=== PATIENT | male | born 1965 | race Caucasian/White ===

== ENCOUNTER → 2020-10-18 10:01 | Outpatient (CLI) | payer BC, SELFPAY | PROVIDERS: PCP Family Medicine; Visit Provider Family Medicine | DX: I49.3 Ventricular premature depolarization (principal) | CPT/HCPCS: 93225; 93226 ==

== ENCOUNTER 2023-12-24 08:09 | Outpatient (CLI) | payer BC, SELFPAY ==
--- NOTE | 2023-12-24 08:13 | US_ITS ---
FINAL REPORT TECHNIQUE: Ultrasound images of the abdomen were obtained. CLINICAL HISTORY: WEIGHT LOSS,ABN PAIN, BLOATING FINDINGS: The pancreas is obscured by bowel gas. The liver is unremarkable. The gallbladder is filled with sludge. There is no gallbladder wall thickening. The common duct is not well seen. The right kidney measures 10.0 cm in length and is normal in echogenicity without hydronephrosis. The left kidney measures 13.0 cm in length and is normal in echogenicity without hydronephrosis. There are echogenic foci in both kidneys measuring up to 7 mm on the right consistent with nonobstructing stones. The spleen is unremarkable. The aorta is normal in caliber. The vena cava is unremarkable. IMPRESSION: Nonobstructing renal stones. Reviewed, Interpreted and Dictated by Brad Neal MD Transcribed by Hermelinda Hughes Authenticated and . [facility]
== END 2023-12-24 23:59 | disposition home or self-care (01) ==
PROVIDERS: PCP Family Medicine; Visit Provider Nurse Practitioner
DX: R63.4 Abnormal weight loss (principal); R10.9 Unspecified abdominal pain; R14.0 Abdominal distension (gaseous)
CPT/HCPCS: 76700

== ENCOUNTER 2024-01-16 10:07 | Outpatient (CLI) | payer BC, SELFPAY ==
--- NOTE | 2024-01-16 10:12 | NM_ITS ---
FINAL REPORT CLINICAL HISTORY: Right upper quadrant pain FINDINGS: Sequential anterior projection images of the abdomen were obtained after the intravenous injection of 5.3 mCi technetium 99m Choletec. There is normal uptake of radiotracer by the liver. There is proper filling of the bile ducts and gallbladder. Bowel activity is visualized. After 1 hour, 2.1 ?g of CCK was injected intravenously for calculation of gallbladder ejection fraction. The gallbladder ejection fraction is 36%, which is abnormally depressed. IMPRESSION: No evidence of cystic duct or bile duct obstruction. Abnormally depressed gallbladder ejection fraction of 36%. Reviewed, Interpreted and Dictated by Brad Neal MD Transcribed by Julieta Truong Authenticated and [facility]
[2024-01-16] MEDS: SODIUM CHLORIDE 0.9% 10ML SYR (RAD ONLY) 10 ML IV (12:27)
[2024-01-16] MEDS: SINCALIDE 2.1 MCG in 0.9 % SODIUM CHLORIDE 50 ML 100 MCG IV (12:27)
[2024-01-16] MEDS: ISOTOPE CHOLETECH;1 DOSE (UP TO 15 MCI) IV (12:27)
== END 2024-01-16 23:59 | disposition home or self-care (01) ==
PROVIDERS: PCP Nurse Practitioner; Visit Provider Nurse Practitioner
DX: K82.8 Other specified diseases of gallbladder (principal)
CPT/HCPCS: 78227; A9537; J2805

== ENCOUNTER 2024-02-12 12:03 | Outpatient (CLI) | payer BC, SELFPAY ==
[2024-02-12 12:43] LABS: Basophils # 0.1 K/mm3 (0-0.2); Basophils % 1.4 % (0.1-2.0); Eosinophils # 0.1 K/mm3 (0.0-0.4); Eosinophils % 1.4 % (0.1-12.0); Hematocrit 35.8 % (42.0-52.0); Hemoglobin 11.5 g/dL (14.1-18.0); Lymphocytes # 1.1 K/mm3 (0.7-4.5); Lymphocytes % 17.7 % (10-50); Mean Corpuscular HGB Conc 32.2 g/dL (31.8-35.4); Mean Corpuscular Hemoglobin 30.8 pg (27.0-31.2); Mean Corpuscular Volume 95.5 fl (80-94); Mean Platelet Volume 8.6 fl (7.4-10.4); Monocytes # 0.3 K/mm3 (0.1-1.0); Monocytes % 4.5 % (1.7-9.3); Neutrophils # 4.5 K/mm3 (1.8-7.8); Platelet Count 203 K/mm3 (142-424); Red Blood Count 3.75 M/mm3 (4.60-6.20); Red Cell Distribution Width 15.7 % (11.5-17.5); White Blood Count 5.9 K/mm3 (4.8-10.8)
[2024-02-12 12:53] LABS: Alanine Aminotransferase 20 U/L (12-78); Albumin Level 3.9 g/dl (3.5-5.0); Albumin/Globulin Ratio 1.5 (1.1-1.8); Alkaline Phosphatase 143 U/L (38-126); Anion Gap 18.1 mEq/L (5-15); Aspartate Amino Transferase 32 U/L (17-59); Bilirubin,Total 0.9 mg/dl (0.2-1.3); Blood Urea Nitrogen 17 mg/dl (9-20); Calcium 9.2 mg/dl (8.4-10.2); Carbon Dioxide 22 mmol/L (22.0-30.0); Chloride 112 mmol/L (98-107); Estimated Glomerular Filt Rate 68 ml/min (>60); GFR (African American) 83 ML/MIN (>60); Globulin 2.6 g/dL (1.3-3.2); Glucose 90 mg/dl (74-100); Potassium 4.1 mmoL/L (3.5-5.1); Sodium 148 mmol/L (136-145); Total Protein,Serum 6.5 g/dl (6.3-8.2)
[2024-02-12 13:14] LABS: Activated Partial Thrombo Time 29.6 seconds (22.8-30.6); INR 1.28 (0.9-1.1)
[2024-02-12 14:18] LABS: Iron 51 ug/dL (49-181)
[2024-02-12 14:28] LABS: Total Iron Binding Capacity 328 ug/dL (261-462)
[2024-02-12 14:55] LABS: Ferritin 57.8 ng/ml (17.9-464)
== END 2024-02-12 23:59 | disposition home or self-care (01) ==
LOC: LAB 12:04
PROVIDERS: PCP Nurse Practitioner; Visit Provider Internal Medicine Medical Oncology
DX: C25.9 Malignant neoplasm of pancreas, unspecified (principal)
CPT/HCPCS: 36415; 80053; 82728; 83540; 83550; 85025; 85610; 85730

== ENCOUNTER 2024-02-19 11:41 | Outpatient (CLI) | payer BC, SELFPAY ==
--- NOTE | 2024-02-19 12:13 | ECG_ITS ---
APPROVED REPORT Exam: Resting ECG HR:62 bpm ECG Measurements Heart Rate 62 AXES AR 174 P 32 QRSd 106 QRS 2 QT 452 T 111 QTc 458 Conclusion SINUS RHYTHM LEFT VENTRICULAR HYPERTROPHY AND ST-T CHANGE [VOLTAGE CRITERIA PLUS ST/T ABNORMALITY] ABNORMAL ECG INTERPRETATION BASED ON A DEFAULT AGE OF 38 YEARS UNCONFIRMED REPORT Electronically signed by : Nicolás Chase MD 02/21/2024 14:13:30
== END 2024-02-19 23:59 | disposition home or self-care (01) ==
LOC: PREOP 11:42
PROVIDERS: PCP Nurse Practitioner; Visit Provider Surgery
DX: I51.7 Cardiomegaly (principal); R94.31 Abnormal electrocardiogram [ECG] [EKG]
CPT/HCPCS: 93005

== ENCOUNTER 2024-02-25 06:10 | Day surgery (SDC) | payer BC, SELFPAY ==
[2024-02-19 12:21] VITALS: BMI 29.5
[2024-02-24 13:53] VITALS: BMI 30.3
[2024-02-25] VITALS (10 sets, daily range): BP systolic 108–143; BP diastolic 72–96; PULSE 72–86; RESP 16–18; TEMP 36.2–36.6; O2SAT 93–99
--- NOTE | 2024-02-25 06:38 | P.OP_ITS ---
Date of procedure: 02/25/24 Pre-op Diagnosis:: Pancreatic adenocarcinoma Post-op Diagnosis:: Same Procedure performed:: Port-A-Cath placement Surgeon:: Shivam Ramon MD Anesthesia: local and LMA Estimated blood loss (mL): 10 Operative findings:: Catheter placement confirmed fluoroscopically Operative note:: After informed consent was obtained the patient was taken to the operating room and placed in the supine position. General anesthesia with laryngeal mask airway was achieved. His chest and neck were prepped and draped in a sterile fashion. After infiltration with local anesthetic a large bore needle was utilized to access the left subclavian vein. The guidewire was placed in position and confirmed fluoroscopically. A transverse incision was made at the guidewire exit site. Electrocautery was then utilized to transect through the subcutaneous tissue to create a pocket for the port hub. Utilizing a modified Seldinger technique the port catheter was placed in position and confirmed fluoroscopically. The catheter was cut to appropriate length and secured to the hub. The hub was then secured to the underlying fascia with interrupted Prolene suture. The deep subcutaneous tissue was reapproximated with interrupted V icryl. Skin was then closed with 4-0 Monocryl in a running subcuticular manner. The port was flushed with heparinized saline without difficulty. Dressings were applied and the patient was transferred to recovery in stable condition. Condition: stable Disposition: PACU Specimens:: None Complications:: No immediate. Chest x-ray pending.
[2024-02-25] MEDS: 0.9 % SODIUM CHLORIDE 1000ML 1,000 ML 25 ML IV (06:54)
[2024-02-25] MEDS: CLINDAMYCIN PHOSPHATE/D5W 900 MG/50 ML PIGGYBACK 50 MG (07:01)
[2024-02-25 07:05] LABS: Basophils # 0.1 K/mm3 (0-0.2); Basophils % 1.7 % (0.1-2.0); Eosinophils # 0.1 K/mm3 (0.0-0.4); Hematocrit 33.3 % (42.0-52.0); Hemoglobin 10.7 g/dL (14.1-18.0); Mean Corpuscular HGB Conc 32.2 g/dL (31.8-35.4); Mean Corpuscular Hemoglobin 29.7 pg (27.0-31.2); Mean Corpuscular Volume 92.3 fl (80-94); Mean Platelet Volume 9.2 fl (7.4-10.4); Monocytes # 0.2 K/mm3 (0.1-1.0); Monocytes % 4.6 % (1.7-9.3); Neutrophils # 3.6 K/mm3 (1.8-7.8); Neutrophils % 71.7 % (37.0-80.0); Platelet Count 148 K/mm3 (142-424); Red Cell Distribution Width 15.8 % (11.5-17.5)
[2024-02-25 07:06] LABS: Albumin Level 3.5 g/dl (3.5-5.0); Chloride 111 mmol/L (98-107); Sodium 142 mmol/L (136-145)
[2024-02-25 07:07] LABS: Potassium 3.6 mmoL/L (3.5-5.1)
[2024-02-25 07:09] LABS: Alanine Aminotransferase 20 U/L (12-78); Albumin/Globulin Ratio 1.3 (1.1-1.8); Anion Gap 14.6 mEq/L (5-15); Aspartate Amino Transferase 37 U/L (17-59); Blood Urea Nitrogen 31 mg/dl (9-20); Carbon Dioxide 20 mmol/L (22.0-30.0); Creatinine Clearance Estimated 116 mL/min (50-200); Estimated Glomerular Filt Rate 76 ml/min (>60); GFR (African American) 92 ML/MIN (>60); Globulin 2.7 g/dL (1.3-3.2); Total Protein,Serum 6.2 g/dl (6.3-8.2)
[2024-02-25 07:10] LABS: Alkaline Phosphatase 121 U/L (38-126); Bilirubin,Total 1.1 mg/dl (0.2-1.3); Calcium 8.7 mg/dl (8.4-10.2); Glucose 105 mg/dl (74-100)
[2024-02-25] MEDS: SODIUM CHLORIDE 0.9% 20ML VIAL 40 ML IV (07:26)
[2024-02-25] MEDS: LIDOCAINE 1% 20ML MDV 20 ML (07:26)
--- NOTE | 2024-02-25 07:55 | XR_ITS ---
FINAL REPORT CLINICAL HISTORY: PORT A CATH PLACEMENT > fluoro time 0:40 mGy 12.86 FINDINGS: FLUOROSCOPY LESS THAN 1 HOUR HISTORY: Fluoroscopy guidance. Fluoroscopic guidance was provided for Port-A-Cath placement. 2 spot films were obtained. A total of 0:40 minutes of fluoroscopy time were used. Total DAP: 12.86 mGy IMPRESSION: As above. Reviewed, Interpreted and Dictated by Jason Lloyd III, MD Transcribed by Cleo Frasuto Authenticated and [facility]
--- NOTE | 2024-02-25 08:14 | XR_ITS ---
FINAL REPORT CLINICAL HISTORY: port placement COMPARISON: None FINDINGS: A single portable view of the chest was obtained. The heart size and pulmonary vascularity are within normal limits. There is a left subclavian chest port with the tip in the lower SVC. Prior median sternotomy. Mild bibasilar atelectasis is noted. The bony thorax is intact. IMPRESSION: Mild bibasilar atelectasis. Left subclavian chest port tip in the lower SVC. Reviewed, Interpreted and Dictated by Jason Lloyd III, MD Transcribed by Cleo Frausto Authenticated and [facility]
--- NOTE | 2024-02-25 08:22 | EXP.ANES.CKL ---
[facility] Disclaimer: The information contained in this section may have been updated after the patient was seen, as this information can be updated by other users. Medical History Congenital heart defect Pancreatic cancer Surgical History History of Ross procedure Family History Other Family history of diabetes mellitus Social History (Updated 02/25/24 @ 06:38 by Candida Baron RN) Smoking Status: Former smoker second hand exposure: No alcohol intake: never substance use type: denies use current occupational status: employed Travel in the last 8 weeks: None [facility] Anesthesia Checklist Patient Identification Patient Identification: Arm Band Structural Data Admitted From: Home Planned Operative Procedure/s: Port-a-cath Placement Consent for Planned Operative Procedure(s) Verified: Yes Verified Documents: Surgical Consent and History and Physical NPO Status Verified Time NPO: 00:00 Additional verifications Anesthesia Reactions: No Hx Blood Transfusions: No Blood Transfusion Reaction: No Airway Assessment Mallampati Score:: Class II C-Spine Mobility Assessed: Yes TMJ Mobility Assessed: Yes Dentition: Good Dentition Neurological Assessment Level of Consciousness: Awake, Alert and Appropriate Anesthesia Plan Anesthesia Risk discussed: Yes Anesthesia Plan: Verified ASA Class: III Anesthesia Type: General
--- NOTE | 2024-02-25 08:23 | EXP.ANES.I ---
[facility] Anesthesia Record Part I Anesthesia Record I Intake, IV Amount: 800 Hydration: Adequate Estimated blood loss (mL): 10 Urine output (mL): 0 Blood Products used (#): none Blood Pressure: 112/72 SaO2: 95 Pulse Rate: 83 Airway Patency: Patent Respiratory Rate: 16 Temperature: 97.1 F Patient is:: Drowsy and Stable Stable to PACU at:: 08:20
--- NOTE | 2024-02-26 09:22 | P.PNANES_ITS ---
[facility] Anesthesia Record Part II Anesthesia Record Part II Discharge Time: 08:50 Destination: Surgical Day Care (OP Surgery) PACU nurse assessment reviewed?: Yes Patient Condition:: Good Anesthesia Complications:: None Swallowing reflex intact?: Yes Airway Patency: Patent Cyanosis?: No Blood Pressure: 131/89 SaO2: 96 Respiratory Rate: 18 Pulse Rate: 80 Temperature: 97.1 F Mental Status: Alert & Oriented Pain level:: 0 Nausea and/or vomitting:: None Intake, IV Amount: 0 Hydration: Adequate
[2024-02-26 09:23] VITALS: BP 131/89; PULSE 80; RESP 18; TEMP 36.2; O2SAT 96
== END 2024-02-25 10:32 | disposition home or self-care (01) ==
PROVIDERS: Internal Medicine Medical Oncology; PCP Nurse Practitioner; Visit Provider Surgery
PROC: (CPT 36561; principal; 2024-02-25 07:00)
DX: C25.9 Malignant neoplasm of pancreas, unspecified (principal)
CPT/HCPCS: 36561; 77001; 71045; 76000; 80053; 85025; 96374; C1788; J0736; J1642; J2250; J2405; J3010; J7030

== ENCOUNTER 2024-02-26 08:22 | Outpatient (CLI) | payer BC, SELFPAY ==
[2024-02-26] VITALS (28 sets, daily range): BP systolic 91–134; BP diastolic 55–85; PULSE 59–98; RESP 16–20; TEMP 36.8–37.1; O2SAT 94–99
[2024-02-26] MEDS: CALCIUM GLUCONATE 1,000 MG, MAGNESIUM SULFATE 1 GM in DEXTROSE 5 % IN WATER 100 ML 224 MG IV ×2 (09:25→12:36)
[2024-02-26] MEDS: SODIUM CHLORIDE 0.9% 100ML BAG 100 ML IV (09:26)
[2024-02-26] MEDS: DEXAMETHASONE 4MG TABLET 12 MG PO (09:37)
[2024-02-26] MEDS: ONDANSETRON 4MG ODT 16 MG SL (09:37)
[2024-02-26] MEDS: POTASSIUM CHLORIDE 20MEQ TAB 40 MEQ PO (09:38)
[2024-02-26] MEDS: APREPITANT 125MG/80MG TRIFOLD PACK 1 PACKET PO (09:38)
[2024-02-26] MEDS: WATER IV ×3 (10:14→15:24)
[2024-02-26] MEDS: OXALIPLATIN IV (10:14)
[2024-02-26] MEDS: DEXTROSE 5% IV ×3 (10:14→15:24)
[2024-02-26] MEDS: IRINOTECAN HCL IV (13:29)
[2024-02-26] MEDS: PROCHLORPERAZINE 10MG/2ML VIAL 10 MG (14:19)
--- NOTE | 2024-02-26 14:34 | PC.NURSE ---
1415-PT COMPLAINED OF STOMACH HURTING, STATING IT FELT LIKE HE HAD A BIG AIR BUBBLE IN THERE. ENCOURAGED PT TO TRY TO EXPEL GAS TO SEE IF IT WOULD HELP WITH THE PAIN. 1420-GAVE COMPAZINE 10MG IVP AT THIS TIME.
[2024-02-26] MEDS: LEUCOVORIN CALCIUM IV (15:24)
[2024-02-26] MEDS: LOPERAMIDE 2MG CAPSULE 4 MG PO (15:50)
--- NOTE | 2024-02-26 16:11 | PC.NURSE ---
1450-PT IN BATHROOM, STATING HE JUST NEEDS SOME TIME. 1505-PT REMAINS IN BATHROOM, IV PUMP BEEPING. PT STATES HE DOES NOT NEED ANYTHING. 1520-PT REMAINS IN BATHROOM. STATES HE COULD USE SOME HELP GETTING CLEANED UP. OXALIPLATIN DONE INFUSING. FLUSHING WITH NS AT THIS TIME. PT HAS DARK BROWN/BLACK STOOL ON HIS HANDS AND DOWN HIS LEGS. HE STATES HE DOESN'T REALLY HAVE DIARRHEA BUT STOOL DOES APPEAR VERY SOFT AND LOOSE. STATES SOON HE THINKS HE'S DONE, HE GOES AGAIN AND CANT STOP IT. ASSISTED PT IN GETTING CLEANED UP. 1530-STARTED LEUCOVORIN INFUSION AT THIS TIME. 1550-LOPERAMIDE 4MG GIVEN PO AT THIS TIME.
--- NOTE | 2024-02-26 16:55 | PC.NURSE ---
2931-ATTEMPTED TO CALL DR LOCKE REGARDING PT'S SYMPTOMS BUT GOT NO RESPONSE. EXPLAINED TO PT THAT SYMPTOMS APPEAR TO BE SIDE EFFECTS RELATED TO OXALIPLATIN. REMINDED NOT TO EAT/DRINK ANYTHING COLD UNTIL THICK FEELING IN HIS TONGUE GOES AWAY. EXPLAINED THAT IF DR LOCKE GIVES THIS CHEMO REGIMEN AGAIN, DOSES MAY HAVE TO BE ADJUSTED.
[2024-02-26] MEDS: PEGFILGRASTIM 6 MG/0.6 ML SUBCUT (17:57)
--- NOTE | 2024-02-26 18:20 | PC.NURSE ---
1755-NEULASTA ONPRO 6MG PLACED ONTO PT'S LEFT UPPER ARM. GAVE INSTRUCTIONS ON USE TO PT/MOTHER, INCLUDING DELIVERY STARTING IN 27HRS AND HOW TO DISPOSE OF DEVICE. 1800-HOOKED UP 5FU 5,470MG TO PORT A CATH FOR INFUSION OVER 46 HRS. INSTRUCTED PT TO RETURN IN 46 HRS TO DISCONTINUE 5FU AND DEACCESS PORT.
== END 2024-02-26 18:10 ==
LOC: INF 08:23
PROVIDERS: PCP Nurse Practitioner; Visit Provider Internal Medicine Medical Oncology
DX: C25.9 Malignant neoplasm of pancreas, unspecified (principal)
CPT/HCPCS: J0640; J0780; J2506; J7060; J8501; J8540; J9206; J9263; Q0162

== ENCOUNTER 2024-02-28 15:04 | Outpatient (CLI) | payer BC, SELFPAY ==
[2024-02-28] MEDS: SODIUM CHLORIDE 0.9% 10ML FLUSH SYRINGE 10 ML IV (15:20)
== END 2024-02-28 15:35 | disposition home or self-care (01) ==
LOC: INF 15:05
PROVIDERS: PCP Nurse Practitioner; Visit Provider Internal Medicine Medical Oncology
DX: C25.9 Malignant neoplasm of pancreas, unspecified (principal)
CPT/HCPCS: 96523; J1642

== ENCOUNTER 2024-03-08 14:28 | Observation (INO) | payer BC, SELFPAY ==
[2024-03-08] VITALS (25 sets, daily range): BP systolic 100–123; BP diastolic 50–78; PULSE 62–83; RESP 16–20; TEMP 36.5–37.1; O2SAT 98–100; BMI 23.7; BMI 26.5
--- NOTE | 2024-03-08 14:33 | ED_ITS ---
<Statement entered by Teresa Harris DO - 03/08/24 23:33> I was consulted by the KG, and we discussed the complexity of the problems being addressed. I approved the treatment and management plan for this patient's care in the emergency department, thus performing a substantive portion of the medical decision making. Teresa Harris DO Discharge Plan Disposition Patient Disposition: Home, Self-Care Condition: Good Clinical Impressions Clinical Impression: Symptomatic anemia Discharge ED Provider: Teresa Harris General Adult HPI General Chief complaint: Weakness Stated complaint: Weakness Time Seen by Provider: 03/08/24 14:33 History of Present Illness HPI narrative: Patient presents for evaluation of functional decline and weakness. Patient was diagnosed with stage IV pancreatic cancer approximately 4 weeks ago. The cause of the initial investigation 4 weeks ago was melena. He was ultimately admitted to the [facility] for approximately 2 weeks where he was diagnosed with stage IV pancreatic cancer that had locally invaded into the stomach and the spleen. He had bidirectional endoscopy and tagged red blood cell scans that did not identify source of bleeding. However during his admission he had a small subsegmental PE was placed on Eliquis upon discharge. Patient has just recently started triple chemotherapy with Dr. Katharina nuno and Lyle and first round was done on February 25. He is due this next week for his second round. Patient's brother noted that he had become more functionally weak and had to come assist him off of the toilet yesterday as patient was too weak to stand. Patient also reports that he has had decreased appetite and intake since starting chemotherapy. He denies however abdominal pain nausea vomiting diarrhea fever chills hemoptysis hematochezia melena hematemesis currently. Related Data Home Medications ?Medication ?Instructions ?Recorded ?Confirmed allopurinol 300 mg tablet 300 mg PO DAILY 02/12/24 02/26/24 apixaban 5 mg tablet (Eliquis) 5 mg PO DAILY 02/12/24 02/26/24 cholecalciferol (vitamin D3) 25 25 mcg PO DAILY 02/12/24 02/26/24 mcg (1,000 unit) capsule loratadine 10 mg tablet (Allergy 10 mg PO DAILY 02/12/24 02/26/24 Relief (loratadine)) metoprolol tartrate 100 mg tablet 50 mg PO BID 02/12/24 02/26/24 ondansetron 4 mg disintegrating 4 mg PO DAILYP PRN Nausea 02/12/24 02/26/24 tablet prochlorperazine maleate 10 mg 10 mg PO Q6HP PRN nausea and 02/26/24 02/26/24 tablet (Compazine) vomiting Previous Rx's ?Medication ?Instructions ?Recorded prochlorperazine maleate 10 mg 10 mg PO BID PRN nausea and 02/14/24 tablet (Compazine) vomiting #30 tabs dexamethasone 4 mg tablet 4 mg PO DAILY chemotherapy #24 tabs 02/24/24 loperamide 2 mg capsule 2 mg PO QID PRN diarrhea #30 caps 02/24/24 (Anti-Diarrheal (loperamide)) ondansetron 8 mg disintegrating 8 mg PO DAILY chemotherapy #24 tabs 02/24/24 tablet Allergies Allergy/AdvReac Type Severity Reaction Status Date / Time peanut Allergy Hives Verified 02/25/24 06:29 penicillin G Allergy Unknown Verified 02/25/24 07:11 allergy reaction PFSH [facility] Disclaimer: The information contained in this section may have been updated after the patient was seen, as this information can be updated by other users. Medical History Congenital heart defect Pancreatic cancer Surgical History History of Ross procedure Family History Other Family history of diabetes mellitus Social History Smoking Status: Former smoker second hand exposure: No alcohol intake: never substance use type: denies use current occupational status: employed Travel in the last 8 weeks: None Other Medical History Have you received the Pneumonia Vaccine: No ROS Obtained: Yes Systems reviewed as appropriate & no additional complaints except as documented Physical Exam General General appearance: alert, in no apparent distress and other (Pale) Respiratory Respiratory exam: Present normal lung sounds bilaterally Cardiovascular Cardiovascular exam: Present regular rate; Absent normal heart sounds Neurological Exam Neurological exam: Present alert and oriented X3 Medical Decision Making Medical Records Medical records reviewed: Yes I reviewed the patient's medical records. Screening: Per USPSTF and CDC recommendations, given the prevalence of disease in our region, it is our hospital?s policy to screen for HIV and viral Hepatitis for all patients aged 18 and over and those with ongoing risk factors. Omari Inquiry Pt receiving controlled substance: No Vital Signs: 03/08/24 14:28 03/08/24 15:00 03/08/24 15:30 Temperature 98.2 F Temperature Source Oral Pulse Rate 68 75 Pulse Rate [Right] 75 Respiratory Rate 20 Blood Pressure 123/78 106/63 L Blood Pressure [Right Arm] 104/60 L Blood Pressure Mean 93 78 Blood Pressure Mean [Right Arm] 74 Blood Pressure Source Blood Pressure Source [Right Arm] Automatic Cuff 02 Sat by Pulse Oximetry 98 100 100 Oxygen Delivery Method Room Air 03/08/24 16:01 03/08/24 16:30 03/08/24 16:45 Temperature 97.8 F Temperature Source Oral Pulse Rate 72 75 72 Pulse Rate [Right] Respiratory Rate 18 Blood Pressure 119/50 L 114/71 116/72 Blood Pressure [Right Arm] Blood Pressure Mean 73 80 Blood Pressure Mean [Right Arm] Blood Pressure Source Automatic Cuff Blood Pressure Source [Right Arm] 02 Sat by Pulse Oximetry 100 100 Oxygen Delivery Method Room Air Lab Data Lab results reviewed: Yes I reviewed the patient's lab results. Lab Results 03/08/24 15:25: WBC 3.2 L, RBC 1.60 L*, Hgb 5.0 L*, Hct 15.8 L*, MCV 99.0 H, MCH 31.2, MCHC 31.5 L, RDW 21.9 H, Plt Count 142, MPV 9.9, Neut % (Auto) 72.0, Lymph % (Auto) 19.7, Loup % (Auto) 6.0, Eos % (Auto) 2.1, Baso % (Auto) 0.3, Neut # (Auto) 2.3, Lymph # (Auto) 0.6 L, Loup # (Auto) 0.2, Eos # (Auto) 0.1, Baso # (Auto) 0.0, Sodium 142, Potassium 3.2 L, Chloride 114 H, Carbon Dioxide 19 L, Anion Gap 12.2, BUN 43 H, Creatinine 1.00, Estimated Creat Clear 93, Estimated GFR 76, Est GFR ( Amer) 92, Glucose 93, Calcium 8.2 L, Magnesium 1.8, Total Bilirubin 1.0, AST 30, ALT 26, Alkaline Phosphatase 113, Total Protein 5.2 L, Albumin 3.0 L, Globulin 2.2, Albumin/Globulin Ratio 1.4, Procalcitonin 0.121, Blood Type O Positive, Antibody Screen Negative, Crossmatch (G) See Detail 03/08/24 15:25 03/08/24 15:25 Orders (Tests/Meds): ED MEDICATIONS Generic Name Dose Route Start Last Admin Trade Name Freq PRN Reason Stop Dose Admin Allopurinol 300 mg 03/09/24 09:00 Allopurinol 300mg Tablet PO 04/08/24 08:59 DAILY HANNAH Sodium Chloride 250 mls @ 25 mls/hr 03/08/24 16:30 Sod Chlor 0.9% 250ml Bag IV 03/09/24 16:29 .Q10H HANNAH Pantoprazole Sodium 80 mg/ 100 mls @ 100 mls/hr 03/08/24 16:29 03/08/24 17:08 Sodium Chloride IV 03/08/24 17:28 100 mls/hr ONCE ONE Administration Non-Formulary Medication 50 mg 03/08/24 21:00 Metoprolol Tartrate PO 04/07/24 20:59 BID HANNAH Ondansetron HCl 4 mg 03/08/24 18:27 Ondansetron 4mg Odt PO 04/07/24 18:26 Q6HP PRN Nausea Pantoprazole Sodium 40 mg 03/08/24 21:00 Pantoprazole 40mg Vial IV 04/07/24 20:59 BID HANNAH Discontinued Medications Generic Name Dose Route Start Last Admin Trade Name Gregorioq PRN Reason Stop Dose Admin Lactated Ringer's 1,000 mls @ 999 mls/hr 03/08/24 14:58 03/08/24 15:37 Lactated Ringer's 1000 Ml Bag IV 03/08/24 15:58 999 mls/hr .Q1H1M ONE Administration Ondansetron HCl 4 mg 03/08/24 14:58 03/08/24 15:36 Ondansetron 4mg/2ml Vial IV 03/08/24 14:59 4 mg ONCE ONE Administration ORDERS Category Date Time Status Blood transfusion [Red Blood Cells] Stat BBK 03/08/24 15:25 Results Type and Screen Stat BBK 03/08/24 15:25 Results CBC w/Auto Diff [Complete Blood Count Auto Diff] Stat Lab 03/08/24 15:25 Completed CMP [Comprehensive Metabolic Panel] Stat Lab 03/08/24 15:25 Completed Complete Blood Count Auto Diff AMLAB Lab 03/09/24 06:00 Ordered Comprehensive Metabolic Panel AMLAB Lab 03/09/24 06:00 Ordered HIV (1&2) Antibody Rapid Stat Lab 03/08/24 15:25 Received Hep C Ab with Reflex to RNA Stat Lab 03/08/24 15:25 Received Magnesium AMLAB Lab 03/09/24 06:00 Ordered Magnesium Stat Lab 03/08/24 15:25 Completed Procalcitonin Stat Lab 03/08/24 15:25 Completed UA [Urinalysis and Microscopic] Stat Lab 03/08/24 14:59 Ordered Medical Decision Narrative: In summary patient is a 58-year-old male who presents to the emergency department for evaluation of weakness. Patient is hypotensive on arrival with a systolic of 104 diastolic 60 heart rate 75 respiratory rate is 20 O2 sats 98% on room air upon arrival, afebrile at 98.2. Physical exam is remarkable for a very pale countenance but breath sounds are clear and equal bilaterally to the bases abdomen is soft and nontender with normal bowel sounds.. Differential diagnosis includes anemia versus electrolyte disturbance versus functional decline due to cancer and chemotherapy etc. Initial workup will be conducted with hematologic labs urinalysis. Initial interventions include crystalloid bolus for now. Initial workup reviewed by me and patient is profoundly anemic with hemoglobin of 5 with remainder of his hematologic labs being nonactionable. Upon repeat evaluation patient actually reported feeling somewhat improved after initial fluid bolus. Given this patient will be typed and screened and ordered 2 units of packed red blood cells to be transfused and I had interactive discussion with hospital medicine regarding patient management and he will be admitted for further evaluation and care. Critical Care Critical Care Time Critical Care Time: No
[2024-03-08] MEDS: ONDANSETRON 4MG/2ML VIAL 4 MG IV (15:36)
[2024-03-08] MEDS: LACTATED RINGERS 1000ML 1,000 ML 999 ML IV (15:37)
[2024-03-08 16:12] LABS: Chloride 114 mmol/L (98-107)
[2024-03-08 16:13] LABS: Potassium 3.2 mmoL/L (3.5-5.1); Sodium 142 mmol/L (136-145)
[2024-03-08 16:15] LABS: Alanine Aminotransferase 26 U/L (12-78); Aspartate Amino Transferase 30 U/L (17-59); Blood Urea Nitrogen 43 mg/dl (9-20); Creatinine Clearance Estimated 93 mL/min (50-200); Estimated Glomerular Filt Rate 76 ml/min (>60); GFR (African American) 92 ML/MIN (>60)
[2024-03-08 16:16] LABS: Albumin/Globulin Ratio 1.4 (1.1-1.8); Alkaline Phosphatase 113 U/L (38-126); Calcium 8.2 mg/dl (8.4-10.2); Carbon Dioxide 19 mmol/L (22.0-30.0); Globulin 2.2 g/dL (1.3-3.2); Glucose 93 mg/dl (74-100); Magnesium 1.8 mg/dl (1.6-2.3); Total Protein,Serum 5.2 g/dl (6.3-8.2)
[2024-03-08 16:19] LABS: Basophils % 0.3 % (0.1-2.0); Eosinophils # 0.1 K/mm3 (0.0-0.4); Eosinophils % 2.1 % (0.1-12.0); Lymphocytes # 0.6 K/mm3 (0.7-4.5); Lymphocytes % 19.7 % (10-50); Mean Corpuscular HGB Conc 31.5 g/dL (31.8-35.4); Mean Corpuscular Hemoglobin 31.2 pg (27.0-31.2); Mean Platelet Volume 9.9 fl (7.4-10.4); Monocytes # 0.2 K/mm3 (0.1-1.0); Neutrophils # 2.3 K/mm3 (1.8-7.8); Platelet Count 142 K/mm3 (142-424); Red Cell Distribution Width 21.9 % (11.5-17.5); White Blood Count 3.2 K/mm3 (4.8-10.8)
[2024-03-08 16:22] LABS: Anion Gap 12.2 mEq/L (5-15)
[2024-03-08 16:23] LABS: Hematocrit 15.8 % (42.0-52.0)
--- NOTE | 2024-03-08 16:23 | PC.NURSE ---
CRITICAL H&H 15.8&5.0 PT NAME AND R/V. DR KATHLEEN NOTIFIED
--- NOTE | 2024-03-08 16:31 | P.HP_ITS ---
History of Present Illness *Admission Date: 03/08/24 *Reason for visit:: Fatigue, weakness *History of present illness: Mr. Ramos is a 58-year-old male with recent diagnosis of metastatic pancreatic carcinoma, weight loss, subsegmental PE, and anemia. He presented to the ER because of weakness progressive over the past week since receiving chemotherapy. Denies any frankly melenic stools but does have hemorrhoids and occasionally has red stool. With upper and lower scopes. On Eliquis for subsegmental PE. Has had some dark stools. Previous workup at did not find any source of bleeding. On arrival to the ER, workup including labs showed hemoglobin of 5. Medicine consulted for admission and transfusion. Patient has some mild abdominal pain. Denies any vomiting, did have diarrhea after his chemotherapy. Stable on room air. Afebrile. Pleasant on exam. Mother at bedside helps supplement history. Pancreatic cancer history as follows: Copied from oncology note from last month January 20, 2024: Admitted to [facility] with melena/hematochezia. He had lost approximately 70 pounds since beginning of 2023. He had no abdominal pain. EGD revealed chronic inflammation extensive gastric metaplasia and colonoscopy was suspicious for colonic mass though pathology was benign. CAT scan of the chest/abdomen/pelvis noted a large abdominal mass involving pancreas, spleen and greater curvature stomach, as well as a small right lower lobe pulmonary embolism. EBUS with biopsy showed only necrotic material. Subsequently CT-guided biopsy of peritoneal/omental mass was positive for adenocarcinoma consistent with pancreatic primary. CA 19-9 was conrado vated at 962. At the time of discharge on January 29, hemoglobin was 8.5 and had been 7.7 on admission with no transfusions given. He was discharged on Eliquis due to pulmonary embolus. Denies any further melena or hematochezia, but does complain of persistent fatigue. Has some occasional hemorrhoidal bleeding. Most recently a few days ago. [facility] Disclaimer: The information contained in this section may have been updated after the patient was seen, as this information can be updated by other users. Medical History Congenital heart defect Pancreatic cancer Surgical History History of Ross procedure Family History Other Family history of diabetes mellitus Social History Smoking Status: Former smoker second hand exposure: No alcohol intake: never substance use type: denies use current occupational status: employed Travel in the last 8 weeks: None Other Medical History Have you received the Pneumonia Vaccine: No Review of Systems Review of Systems Review of systems (narrative): 14 point review of systems performed, pertinent positives and negatives as per HPI Meds Home Medications and Allergies Home Medications ?Medication ?Instructions ?Recorded ?Confirmed ?Type allopurinol 300 mg tablet 300 mg PO DAILY 02/12/24 02/26/24 History apixaban 5 mg tablet (Eliquis) 5 mg PO DAILY 02/12/24 02/26/24 History cholecalciferol (vitamin D3) 25 25 mcg PO DAILY 02/12/24 02/26/24 History mcg (1,000 unit) capsule loratadine 10 mg tablet (Allergy 10 mg PO DAILY 02/12/24 02/26/24 History Relief (loratadine)) metoprolol tartrate 100 mg tablet 50 mg PO BID 02/12/24 02/26/24 History ondansetron 4 mg disintegrating 4 mg PO DAILYP PRN Nausea 02/12/24 02/26/24 History tablet prochlorperazine maleate 10 mg 10 mg PO BID PRN nausea and 02/14/24 02/26/24 Rx tablet (Compazine) vomiting #30 tabs dexamethasone 4 mg tablet 4 mg PO DAILY chemotherapy #24 tabs 02/24/24 02/26/24 Rx loperamide 2 mg capsule 2 mg PO QID PRN diarrhea #30 caps 02/24/24 02/26/24 Rx (Anti-Diarrheal (loperamide)) ondansetron 8 mg disintegrating 8 mg PO DAILY chemotherapy #24 tabs 02/24/24 02/26/24 Rx tablet prochlorperazine maleate 10 mg 10 mg PO Q6HP PRN nausea and 02/26/24 02/26/24 History tablet (Compazine) vomiting New Prescriptions to Start Prescriptions: Allergies Allergy/AdvReac Type Severity Reaction Status Date / Time peanut Allergy Hives Verified 02/25/24 06:29 penicillin G Allergy Unknown Verified 02/25/24 07:11 allergy reaction Exam Data for Last 24 hours Vital signs and Labs for Last 24 Hours: Temp Pulse Resp BP Pulse Ox O2 Del Method 98.2 F 72 20 119/50 L 100 Room Air 03/08/24 14:28 03/08/24 16:01 03/08/24 14:28 03/08/24 16:01 03/08/24 16:01 03/08/24 14:28 Laboratory Results - last 24 hr 03/08/24 15:25: WBC 3.2 L, RBC 1.60 L*, Hgb 5.0 L*, Hct 15.8 L*, MCV 99.0 H, MCH 31.2, MCHC 31.5 L, RDW 21.9 H, Plt Count 142, MPV 9.9, Neut % (Auto) 72.0, Lymph % (Auto) 19.7, [place] % (Auto) 6.0, Eos % (Auto) 2.1, Baso % (Auto) 0.3, Neut # (Auto) 2.3, Lymph # (Auto) 0.6 L, [place] # (Auto) 0.2, Eos # (Auto) 0.1, Baso # (Auto) 0.0, Sodium 142, Potassium 3.2 L, Chloride 114 H, Carbon Dioxide 19 L, Anion Gap 12.2, BUN 43 H, Creatinine 1.00, Estimated Creat Clear 93, Estimated GFR 76, Est GFR ( Amer) 92, Glucose 93, Calcium 8.2 L, Magnesium 1.8, Total Bilirubin 1.0, AST 30, ALT 26, Alkaline Phosphatase 113, Total Protein 5.2 L, Albumin 3.0 L, Globulin 2.2, Albumin/Globulin Ratio 1.4, Blood Type O Positive, Antibody Screen Negative I & O for Last 24 hours: Intake & Output 03/05/24 03/06/24 03/07/24 03/08/24 23:59 23:59 23:59 23:59 Weight 83.915 kg Constitutional Constitutional: no acute distress, thin, chronically ill appearing and cooperative *Routine HEENT Exam Head: Present normocephalic Eye: Present EOMI and PERRL ENT: Present mucous membranes moist *Routine Neck Exam Neck: Present supple; Absent lymphadenopathy Routine Chest/Breast/Axilla Exam Comments: Well-healed midline scar *Routine Respiratory Exam Respiratory: Present CTA bilaterally *Routine Cardiovascular Exam Cardiovascular: Present RRR and murmur (Grade 3/6 systolic murmur) *Routine Abdominal Exam Abdominal: Present soft and normoactive bowel sounds; Absent tenderness *Routine Rectal Exam Rectal:: deferred *Routine Genitalia Exam Genitalia:: deferred *Routine Extremities Exam Extremities: Absent cyanosis, clubbing or edema *Routine Skin Exam Skin: Present pallor and warm; Absent rash *Routine Neurological Exam Neurological: Present alert, oriented X3 and moving all extremities; Absent altered mental status Assessment and Plan *Assessment and plan (1) Symptomatic anemia: Status: Acute Category: Medical Code(s): D64.9 - Anemia, unspecified (2) Pancreatic adenocarcinoma: Status: Acute Category: Medical Code(s): C25.9 - Malignant neoplasm of pancreas, unspecified (3) Pulmonary embolism: Status: Acute Category: Medical Code(s): I26.99 - Other pulmonary embolism without acute cor pulmonale Plan 58-year-old male with metastatic pancreatic adenocarcinoma. Presented with worsening shortness of breath and fatigue. Found to have symptomatic anemia. Discussed case with ER provider, request admission for transfusion and serial H&H. I agreed to admit for further treatment. Problems addressed as follows: Symptomatic blood loss anemia -Concern for anemia secondary to blood loss from GI source versus secondary to myelosuppression from chemotherapy. Will hold anticoagulation at this time -Typed and crossed, O+. Will transfuse 2 units, goal hemoglobin greater than 7. Repeat H&H in the morning. -Initiate pantoprazole 80 mg IV once followed by 40 mg IV twice daily. -Previous workup at for possible GI bleed. No identified source. Will monitor serial H&H. Hold on GI consult pending response to transfusion and persistent anemia. -If has melenic stools or hematochezia, low threshold to consult GI for scope - White cell count 3.2. Platelets 142. Hemoglobin 5.0. BUN 43, creatinine 1. Suspicious for GI source. -MCV 99. Will obtain iron levels and B12/folate level -Repeat CBC, CMP exam ordered for the morning. History of PE (diagnosed 6 weeks ago): On Eliquis 5 mg twice daily. Will hold at this time given anemia. Reevaluate necessity of medication pending response to transfusion. Patient hemodynamically stable and on room air at this time. Pancreatic adenocarcinoma: Complicates all aspects of his care. Has metastasis to surrounding tissue. Concern complicates his bleeding. Has had extensive workup for his anemia in the past including scopes at with no identified source. Due for next round of chemo on Saturday Full code Full liquid diet Holding anticoagulation in the setting of anemia
--- NOTE | 2024-03-08 16:46 | PC.NURSE ---
blood administration consent obtained
[2024-03-08 16:52] LABS: Procalcitonin 0.121 ng/mL (0.0-2.0)
[2024-03-08] MEDS: PANTOPRAZOLE SODIUM 80 MG in 0.9 % SODIUM CHLORIDE 100 ML 100 MG IV (17:08)
--- NOTE | 2024-03-08 17:46 | PC.NURSE ---
SPOKE WITH LABORATORY REGARDING BLOOD TRANSFUSION ORDER. ETA 20 MIN UNTIL BLOOD IS READY.
[2024-03-08] MEDS: 0.9 % SODIUM CHLORIDE 250 ML 25 ML IV (19:00)
[2024-03-08 19:06] LABS: Iron 41 ug/dL (49-181)
[2024-03-08 19:15] LABS: Total Iron Binding Capacity 297 ug/dL (261-462)
[2024-03-08 19:48] LABS: Ferritin 62.9 ng/ml (17.9-464)
[2024-03-08 20:25] LABS: Microscopic, Urine URINE MICROSCOPIC (MICROSCOPIC)
[2024-03-08 20:39] LABS: Folate > 20.00 ng/mL; Vitamin B12 > 1000 pg/mL (239-931)
[2024-03-08 20:57] LABS: Appearance,Urine CLEAR (Clear); Bilirubin,Urine Negative (Negative); Blood, Urine Negative (Negative); Color,Urine YELLOW (Yellow); Glucose,Urine (UA) Negative (Negative); Ketones,Urine Negative (Negative); Leukocyte Esterase,Urine Negative (Negative); Nitrate,Urine Negative (Negative); Protein,Urine Negative (Negative); Urobilinogen,Urine 0.2 EU/dl (0.2)
[2024-03-08] MEDS: PANTOPRAZOLE 40MG VIAL 40 MG IV (21:40)
[2024-03-08 22:08] LABS: Bacteria,Urine Trace /lpf
[2024-03-09] VITALS (7 sets, daily range): BP systolic 90–123; BP diastolic 53–78; PULSE 51–83; RESP 16–18; TEMP 36.6–36.8; O2SAT 96–99; BMI 26.4
[2024-03-09 07:19] LABS: Eosinophils # 0.1 K/mm3 (0.0-0.4); Lymphocytes # 0.8 K/mm3 (0.7-4.5); Mean Corpuscular Volume 92.6 fl (80-94); Monocytes # 0.1 K/mm3 (0.1-1.0); Neutrophils # 1.4 K/mm3 (1.8-7.8)
[2024-03-09 07:24] LABS: Albumin Level 2.6 g/dl (3.5-5.0); Chloride 114 mmol/L (98-107); Potassium 3.4 mmoL/L (3.5-5.1); Sodium 136 mmol/L (136-145)
[2024-03-09 07:26] LABS: Blood Urea Nitrogen 40 mg/dl (9-20)
[2024-03-09 07:27] LABS: Alanine Aminotransferase 18 U/L (12-78); Albumin/Globulin Ratio 1.2 (1.1-1.8); Alkaline Phosphatase 101 U/L (38-126); Anion Gap 3.4 mEq/L (5-15); Aspartate Amino Transferase 32 U/L (17-59); Bilirubin,Total 2.6 mg/dl (0.2-1.3); Calcium 7.7 mg/dl (8.4-10.2); Carbon Dioxide 22 mmol/L (22.0-30.0); Creatinine Clearance Estimated 104 mL/min (50-200); Estimated Glomerular Filt Rate 76 ml/min (>60); GFR (African American) 92 ML/MIN (>60); Globulin 2.1 g/dL (1.3-3.2); Glucose 89 mg/dl (74-100); Magnesium 1.7 mg/dl (1.6-2.3); Total Protein,Serum 4.7 g/dl (6.3-8.2)
[2024-03-09 08:01] LABS: Basophils % 0.3 % (0.1-2.0); Hematocrit 23.2 % (42.0-52.0); Lymphocytes % 33.6 % (10-50); Mean Corpuscular HGB Conc 32.3 g/dL (31.8-35.4); Mean Corpuscular Hemoglobin 29.9 pg (27.0-31.2); Mean Platelet Volume 9.4 fl (7.4-10.4); Neutrophils % 59.1 % (37.0-80.0); Platelet Count 77 K/mm3 (142-424); Red Cell Distribution Width 21.6 % (11.5-17.5); White Blood Count 2.3 K/mm3 (4.8-10.8)
[2024-03-09 08:02] LABS: Hemoglobin 7.5 g/dL (14.1-18.0)
[2024-03-09] MEDS: MAGNESIUM SULFATE IN WATER 2 GM/50 ML PIGGYBACK IV (08:58)
[2024-03-09] MEDS: METOPROLOL TARTRATE 50MG TABLET 100 MG PO (08:59)
[2024-03-09] MEDS: PANTOPRAZOLE 40MG VIAL 40 MG IV (09:00)
--- NOTE | 2024-03-09 09:05 | HMH.PHAINT1 ---
Pharmacy Intervention Comments: MEDICATION RECONCILIATION COMPLETED ON PATIENT USING EXTERNAL FILL HISTORY FROM PHARMACY AND LIST FROM ONCOLOGY/SURGICAL OFFICES. -PERFECTO ORTIZD
[2024-03-09 14:30] LABS: Hematocrit 23.8 % (42.0-52.0); Hemoglobin 7.8 g/dL (14.1-18.0)
--- NOTE | 2024-03-09 14:46 | P.DS_ITS ---
General Admission date:: 03/08/24 Discharge date: 03/09/24 HPI HPI HPI: Mr. Ramos is a 58-year-old male with recent diagnosis of metastatic pancreatic carcinoma, weight loss, subsegmental PE, and anemia. He presented to the ER because of weakness progressive over the past week since receiving chemotherapy. Denies any frankly melenic stools but does have hemorrhoids and occasionally has red stool. With upper and lower scopes. On Eliquis for subsegmental PE. Has had some dark stools. Previous workup at did not find any source of bleeding. On arrival to the ER, workup including labs showed hemoglobin of 5. Medicine consulted for admission and transfusion. Patient has some mild abdominal pain. Denies any vomiting, did have diarrhea after his chemotherapy. Stable on room air. Afebrile. Pleasant on exam. Mother at bedside helps supplement history. Pancreatic cancer history as follows: Copied from oncology note from last month January 20, 2024: Admitted to [facility] with melena/hematochezia. He had lost approximately 70 pounds since beginning of 2023. He had no abdominal pain. EGD revealed chronic inflammation extensive gastric metaplasia and colonoscopy was suspicious for colonic mass though pathology was benign. CAT scan of the chest/abdomen/pelvis noted a large abdominal mass involving pancreas, spleen and greater curvature stomach, as well as a small right lower lobe pulmonary embolism. EBUS with biopsy showed only necrotic material. Subsequently CT-guided biopsy of peritoneal/omental mass was positive for adenocarcinoma consistent with pancreatic primary. CA 19-9 was elevated at 962. At the time of discharge on January 29, hemoglobin was 8.5 and had been 7.7 on admission with no transfusions given. He was discharged on Eliquis due to pulmonary embolus. Denies any further melena or hematochezia, but does complain of persistent fatigue. Has some occasional hemorrhoidal bleeding. Most recently a few days ago. Hospital Course Hospital Course Hospital Course: 58-year-old male with metastatic pancreatic adenocarcinoma. Presented with worsening shortness of breath and fatigue. Found to have symptomatic anemia. Discussed case with ER provider, request admission for transfusion and serial H&H. I agreed to admit for further treatment. Responded well to transfusion. Hemoglobin stable. Will discharge home with home health due to general weakness from cancer and therapy. Problems addressed as follows: Symptomatic blood loss anemia -Concern for anemia secondary to blood loss from GI source versus secondary to myelosuppression from chemotherapy. Held anticoagulation during admission. No signs of bleeding. No black stools. Transfused 2 units with good response. Hemoglobin 7.5 in the morning, repeat in the afternoon 7.8. Given his stability, will discharge home with plan to follow-up with oncology later this week. Did resume his anticoagulation for his PE. Continue pantoprazole 40 mg p.o. once daily. Previous workup at for possible GI bleed. No identified source. Do not see any indication to go through long workup with GI again at this time. Repeat labs in 1 week to monitor stability hemoglobin. History of PE (diagnosed 6 weeks ago): On Eliquis 5 mg twice daily. Held during admission. Resume at discharge. Continue to reevaluate need if patient has continued bleeding. May necessitate placement of IVC filter. Patient remained hemodynamically stable and on room air with no chest pain. Pancreatic adenocarcinoma: Complicates all aspects of his care. Has metastasis to surrounding tissue. Concern complicates his bleeding. Has had extensive workup for his anemia in the past including scopes at with no identified source. Due for next round of chemo on Saturday Total time spent on discharge 32 minutes in counseling, documentation, chart review, and direct care with patient. Exam Data for Last 24 hours Vital signs and Labs for Last 24 Hours: Temp Pulse Resp BP Pulse Ox O2 Del Method 98.3 F 51 L 16 90/53 L 98 Room Air 03/09/24 12:00 03/09/24 12:00 03/09/24 12:00 03/09/24 12:00 03/09/24 12:00 03/09/24 12:00 Laboratory Results - last 24 hr 03/08/24 15:15: Iron 41 L, TIBC 297, Iron Saturation 13.67094 L, Ferritin 62.9, Vitamin B12 > 1000 H, Folate > 20.00 03/08/24 15:25: WBC 3.2 L, RBC 1.60 L*, Hgb 5.0 L*, Hct 15.8 L*, MCV 99.0 H, MCH 31.2, MCHC 31.5 L, RDW 21.9 H, Plt Count 142, MPV 9.9, Neut % (Auto) 72.0, Lymph % (Auto) 19.7, Harris % (Auto) 6.0, Eos % (Auto) 2.1, Baso % (Auto) 0.3, Neut # (Auto) 2.3, Lymph # (Auto) 0.6 L, Harris # (Auto) 0.2, Eos # (Auto) 0.1, Baso # (Auto) 0.0, Sodium 142, Potassium 3.2 L, Chloride 114 H, Carbon Dioxide 19 L, Anion Gap 12.2, BUN 43 H, Creatinine 1.00, Estimated Creat Clear 93, Estimated G FR 76, Est GFR ( Amer) 92, Glucose 93, Calcium 8.2 L, Magnesium 1.8, Total Bilirubin 1.0, AST 30, ALT 26, Alkaline Phosphatase 113, Total Protein 5.2 L, Albumin 3.0 L, Globulin 2.2, Albumin/Globulin Ratio 1.4, Procalcitonin 0.121, Blood Type O Positive, Antibody Screen Negative, Crossmatch ([facility]G) See Detail 03/08/24 20:20: Urine Color Yellow, Urine Appearance Clear, Urine pH 6.0, Ur Specific [place] 1.020, Urine Protein Negative, Urine Glucose (UA) Negative, Urine Ketones Negative, Urine Blood Negative, Urine Nitrate Negative, Urine Bilirubin Negative, Urine Urobilinogen 0.2, Ur Leukocyte Esterase Negative, Urine RBC None, Urine WBC 3-5, Ur Squamous Epith Cells None, Urine Bacteria Trace 03/09/24 06:20: WBC 2.3 L D, RBC 2.50 L D, Hgb 7.5 L D, Hct 23.2 L, MCV 92.6, MCH 29.9, MCHC 32.3, RDW 21.6 H, Plt Count 77 L D, MPV 9.4, Neut % (Auto) 59.1, Lymph % (Auto) 33.6, Harris % (Auto) 4.0, Eos % (Auto) 3.0, Baso % (Auto) 0.3, Neut # (Auto) 1.4 L, Lymph # (Auto) 0.8, Harris # (Auto) 0.1, Eos # (Auto) 0.1, Baso # (Auto) 0.0, Sodium 136, Potassium 3.4 L, Chloride 114 H, Carbon Dioxide 22, Anion Gap 3.4 L, BUN 40 H, Creatinine 1.00, Estimated Creat Clear 104, Estimated GFR 76, Est GFR ( Amer) 92, Glucose 89, Calcium 7.7 L, Magnesium 1.7, Total Bilirubin 2.6 H, AST 32, ALT 18 D, Alkaline Phosphatase 101, Total Protein 4.7 L, Albumin 2.6 L D, Globulin 2.1, Albumin/Globulin Ratio 1.2 03/09/24 14:18: Hgb 7.8 L, Hct 23.8 L I & O for Last 24 hours: Intake & Output 03/06/24 03/07/24 03/08/24 03/09/24 23:59 23:59 23:59 23:59 Intake Total 1120 / 1480 1490 / 1490 Output Total 300 / 300 500 / 500 Balance 820 / 1180 990 / 990 Weight 93.667 kg 93.621 kg Results Data Completed and Pending Labs on day of discharge: Labs from last 24 hours 03/09/24 03/09/24 03/08/24 14:18 06:20 20:20 WBC 2.3 L D RBC 2.50 L D Hgb 7.8 L 7.5 L D Hct 23.8 L 23.2 L MCV 92.6 MCH 29.9 MCHC 32.3 RDW 21.6 H Plt Count 77 L D MPV 9.4 Neut % (Auto) 59.1 Lymph % (Auto) 33.6 Harris % (Auto) 4.0 Eos % (Auto) 3.0 Baso % (Auto) 0.3 Neut # (Auto) 1.4 L Lymph # (Auto) 0.8 Harris # (Auto) 0.1 Eos # (Auto) 0.1 Baso # (Auto) 0.0 Sodium 136 Potassium 3.4 L Chloride 114 H Carbon Dioxide 22 Anion Gap 3.4 L BUN 40 H Creatinine 1.00 Estimated Creat Clear 104 Estimated GFR 76 Est GFR ( Amer) 92 Glucose 89 Calcium 7.7 L Magnesium 1.7 Iron TIBC Iron Saturation Ferritin Total Bilirubin 2.6 H AST 32 ALT 18 D Alkaline Phosphatase 101 Total Protein 4.7 L Albumin 2.6 L D Globulin 2.1 Albumin/Globulin Ratio 1.2 Vitamin B12 Folate Procalcitonin Urine Color Yellow Urine Appearance Clear Urine pH 6.0 Ur Specific [place] 1.020 Urine Protein Negative Urine Glucose (UA) Negative Urine Ketones Negative Urine Blood Negative Urine Nitrate Negative Urine Bilirubin Negative Urine Urobilinogen 0.2 Ur Leukocyte Esterase Negative Urine RBC None Urine WBC 3-5 Ur Squamous Epith Cells None Urine Bacteria Trace Blood Type Antibody Screen Crossmatch ([facility]) 03/08/24 03/08/24 15:25 15:15 WBC 3.2 L RBC 1.60 L* Hgb 5.0 L* Hct 15.8 L* MCV 99.0 H MCH 31.2 MCHC 31.5 L RDW 21.9 H Plt Count 142 MPV 9.9 Neut % (Auto) 72.0 Lymph % (Auto) 19.7 Harris % (Auto) 6.0 Eos % (Auto) 2.1 Baso % (Auto) 0.3 Neut # (Auto) 2.3 Lymph # (Auto) 0.6 L Harris # (Auto) 0.2 Eos # (Auto) 0.1 Baso # (Auto) 0.0 Sodium 142 Potassium 3.2 L Chloride 114 H Carbon Dioxide 19 L Anion Gap 12.2 BUN 43 H Creatinine 1.00 Estimated Creat Clear 93 Estimated GFR 76 Est GFR ( Amer) 92 Glucose 93 Calcium 8.2 L Magnesium 1.8 Iron 41 L TIBC 297 Iron Saturation 13.37649 L Ferritin 62.9 Total Bilirubin 1.0 AST 30 ALT 26 Alkaline Phosphatase 113 Total Protein 5.2 L Albumin 3.0 L Globulin 2.2 Albumin/Globulin Ratio 1.4 Vitamin B12 > 1000 H Folate > 20.00 Procalcitonin 0.121 Urine Color Urine Appearance Urine pH Ur Specific [place] Urine Protein Urine Glucose (UA) Urine Ketones Urine Blood Urine Nitrate Urine Bilirubin Urine Urobilinogen Ur Leukocyte Esterase Urine RBC Urine WBC Ur Squamous Epith Cells Urine Bacteria Blood Type O Positive Antibody Screen Negative Crossmatch ([facility]) See Detail DS: Diagnosis Discharge Diagnosis (1) Symptomatic anemia: Status: Acute Code(s): D64.9 - Anemia, unspecified (2) Pancreatic adenocarcinoma: Status: Acute Code(s): C25.9 - Malignant neoplasm of pancreas, unspecified (3) Pulmonary embolism: Status: Acute Code(s): I26.99 - Other pulmonary embolism without acute cor pulmonale Meds Home Medications and Allergies Home Medications ?Medication ?Instructions ?Recorded ?Confirmed ?Type allopurinol 300 mg tablet 300 mg PO DAILY 02/12/24 03/09/24 History apixaban 5 mg tablet (Eliquis) 5 mg PO BID 02/12/24 03/09/24 History cholecalciferol (vitamin D3) 25 25 mcg PO DAILY 02/12/24 03/09/24 History mcg (1,000 unit) capsule loratadine 10 mg tablet (Allergy 10 mg PO DAILY 02/12/24 03/09/24 History Relief (loratadine)) metoprolol tartrate 100 mg tablet 100 mg PO BID 02/12/24 03/09/24 History dexamethasone 4 mg tablet 4 mg PO DAILY chemotherapy #24 tabs 02/24/24 03/09/24 Rx loperamide 2 mg capsule 2 mg PO QID PRN diarrhea #30 caps 02/24/24 03/09/24 Rx (Anti-Diarrheal (loperamide)) ondansetron 8 mg disintegrating 8 mg PO DAILY chemotherapy #24 tabs 02/24/24 03/09/24 Rx tablet prochlorperazine maleate 10 mg 10 mg PO Q6HP PRN nausea and 02/26/24 03/09/24 History tablet (Compazine) vomiting pantoprazole 40 mg tablet,delayed 40 mg PO DAILY #30 tabs 03/09/24 Rx release New Prescriptions to Start Prescriptions: pantoprazole Everardo Arellano Allergies Allergy/AdvReac Type Severity Reaction Status Date / Time peanut Allergy Hives Verified 02/25/24 06:29 penicillin G Allergy Unknown Verified 02/25/24 07:11 allergy reaction Discharge Plan Disposition Patient Disposition: Home Health Service Condition: Fair Discharge Order Discharge Orders: Discharge Order (Routine); Ordered 03/09/24 Ordered By: Everardo Arellano Follow up Plan Follow up with: Ligia Mooney APRN [Primary Care Provider] - 03/23/24 10:00 am Prescriptions/Medication Reconciliation: New pantoprazole 40 mg tablet,delayed release (DR/EC) 40 mg PO DAILY Qty: 30 0RF Continued metoprolol tartrate 100 mg tablet 100 mg PO BID Patient Comments: TAKE 1 TABLET BY MOUTH TWICE DAILY WITH FOOD FOR 90 DAYS Eliquis 5 mg tablet 5 mg PO BID allopurinol 300 mg tablet 300 mg PO DAILY Patient Comments: TAKE 1 TABLET BY MOUTH ONCE DAILY cholecalciferol (vitamin D3) 25 mcg (1,000 unit) capsule 25 mcg PO DAILY loratadine [Allergy Relief (loratadine)] 10 mg tablet 10 mg PO DAILY ondansetron 8 mg tablet,disintegrating 8 mg PO DAILY Qty: 24 2RF Rx Instructions: take 1 tablet daily for 3 days following chemo (day 2,3, and 4)-- repeat each cycle dexamethasone 4 mg tablet 4 mg PO DAILY Qty: 24 5RF Rx Instructions: take 2 tablets daily for 3 days following chemotherapy (days 2,3, and 4) - repeat each cycle loperamide [Anti-Diarrheal (loperamide)] 2 mg capsule 2 mg PO QID PRN (Reason: diarrhea) Qty: 30 0RF Rx Instructions: take as needed for diarrhea -- Do not exceed 16 mg in 24 hrs prochlorperazine maleate [Compazine] 10 mg tablet 10 mg PO Q6HP PRN (Reason: nausea and vomiting) Rx Instructions: take one tablet as needed for nausea and vomiting Other Ambulatory Orders: Complete Blood Count Auto Diff (Routine) Timeframe: 1 Week Facility: [facility] - Location: Laboratory Ordered By: Everardo Arellano Problem Reconciliation Problems Reviewed?: Yes Patient Discharge Instructions ACTIVITY: Continue current activity DIET: continue same diet Patient Instructions: Pancreatic Cancer, Anemia Print Language: Bengali Providers Primary Care Provider: Ligia Mooney Admit Provider: Everardo Arellano Attending Provider: Everardo Arellano
--- NOTE | 2024-03-09 15:21 | SW/DCPLANNER ---
Addendum entered by Kiana King 03/10/24 09:29: [facility] and [facility] have denied this patient. CM will make a follow up phone call w/ patient today and offer to schedule outpatient PT. Addendum entered by Kiana King 03/10/24 07:24: [facility] is not in network w/ patient's insurance. Patient information/order has been faxed to Julio César clark/ [facility]. Original Note: I spoke w/ this patient regarding plans once medically stable for discharge. Dr Arellano has ordered for patient to discharge home w/ home health services. Patient is agreeable to home health and prefers to use [facility]. Patient information/order has been faxed to Marilyn clark/ [facility]. I will follow up once patient information is reviewed.
[2024-03-10 06:10] LABS: HCV Ab Non Reactive (Non Reactive)
--- NOTE | 2024-03-10 10:07 | SW/DCPLANNER ---
Spoke with patient on the phone. Patient stated that he is doing well. Patient stated that he was able to get his medicine filled and brought to his room by clinic pharmacy before he left. Patient stated that he is aware of his upcoming appointments. Spoke with patient about his isurance not covering homehealth services and asked patient about if he would be interested in doing outpatient here at the hospital. Patient stated that he would give it a try. Zhane [facility]. Talked to Luanne in Wellness and she stated that she will call patient with an appointment. Shanell Alexander
[2024-03-10 10:59] LABS: HIV Combo NEGATIVE (Negative)
== END 2024-03-09 16:00 | disposition home or self-care (01) ==
LOC: ER 15:11 → 2ND 16:45
PROVIDERS: Physician Assistant; Admitting Provider Internal Medicine Adolescent Medicine; Emergency Provider Emergency Medicine; PCP Nurse Practitioner; Visit Provider Internal Medicine Adolescent Medicine
DX: D50.0 Iron deficiency anemia secondary to blood loss (chronic) (principal); C25.9 Malignant neoplasm of pancreas, unspecified; I26.99 Other pulmonary embolism without acute cor pulmonale; Z79.899 Other long term (current) drug therapy; Z79.83 Long term (current) use of bisphosphonates; Z79.01 Long term (current) use of anticoagulants; C79.9 Secondary malignant neoplasm of unspecified site
CPT/HCPCS: 36415; 36430; 80053; 81001; 82607; 82728; 82746; 83540; 83550; 83735; 84145; 85014; 85018; 85025; 86803; 86850; 87389; 99285; G0378; J1642; J2405; J3475; J7120; P9016

== ENCOUNTER 2024-03-11 08:50 | Outpatient (CLI) | payer BC, SELFPAY ==
[2024-03-11 09:27] LABS: Chloride 111 mmol/L (98-107)
[2024-03-11 09:28] LABS: Potassium 3.3 mmoL/L (3.5-5.1); Sodium 137 mmol/L (136-145)
[2024-03-11 09:30] LABS: Alanine Aminotransferase 26 U/L (12-78); Alkaline Phosphatase 167 U/L (38-126); Anion Gap 9.3 mEq/L (5-15); Aspartate Amino Transferase 37 U/L (17-59); Bilirubin,Total 1.5 mg/dl (0.2-1.3); Blood Urea Nitrogen 29 mg/dl (9-20); Carbon Dioxide 20 mmol/L (22.0-30.0); Estimated Glomerular Filt Rate 76 ml/min (>60); GFR (African American) 92 ML/MIN (>60)
[2024-03-11 09:31] LABS: Albumin/Globulin Ratio 1.3 (1.1-1.8); Calcium 8.1 mg/dl (8.4-10.2); Globulin 2.3 g/dL (1.3-3.2); Glucose 114 mg/dl (74-100); Total Protein,Serum 5.3 g/dl (6.3-8.2)
[2024-03-11 09:41] LABS: White Blood Count 5.5 K/mm3 (4.8-10.8)
[2024-03-11 09:42] LABS: Hematocrit 24.2 % (42.0-52.0); Hemoglobin 7.8 g/dL (14.1-18.0); Mean Corpuscular HGB Conc 32.2 g/dL (31.8-35.4); Mean Corpuscular Hemoglobin 29.8 pg (27.0-31.2); Mean Corpuscular Volume 92.4 fl (80-94); Mean Platelet Volume 11.3 fl (7.4-10.4); Platelet Count 109 K/mm3 (142-424); Red Blood Count 2.62 M/mm3 (4.60-6.20); Red Cell Distribution Width 19.5 % (11.5-17.5)
[2024-03-11 09:43] LABS: Basophils % 0.5 % (0.1-2.0); Eosinophils # 0.1 K/mm3 (0.0-0.4); Lymphocytes # 0.7 K/mm3 (0.7-4.5); Lymphocytes % 14.1 % (10-50); Monocytes # 0.3 K/mm3 (0.1-1.0); Monocytes % 5.8 % (1.7-9.3); Neutrophils # 4.2 K/mm3 (1.8-7.8); Neutrophils % 76.9 % (37.0-80.0)
[2024-03-11] MEDS: SODIUM CHLORIDE 0.9% 10ML FLUSH SYRINGE 10 ML IV (10:25)
== END 2024-03-11 10:30 | disposition home or self-care (01) ==
LOC: INF 08:51
PROVIDERS: PCP Nurse Practitioner; Visit Provider Internal Medicine Medical Oncology
DX: Z51.11 Encounter for antineoplastic chemotherapy (principal); C25.9 Malignant neoplasm of pancreas, unspecified; Z79.899 Other long term (current) drug therapy
CPT/HCPCS: 36591; 80053; 85025; J1642

== ENCOUNTER 2024-03-16 12:13 | Outpatient (CLI) | payer BC, SELFPAY ==
[2024-03-16 12:20] VITALS: BMI 26.6
[2024-03-16 12:46] LABS: Basophils # 0.1 K/mm3 (0-0.2); Basophils % 0.9 % (0.1-2.0); Eosinophils # 0.1 K/mm3 (0.0-0.4); Eosinophils % 0.9 % (0.1-12.0); Hematocrit 25.4 % (42.0-52.0); Hemoglobin 8.2 g/dL (14.1-18.0); Lymphocytes # 0.9 K/mm3 (0.7-4.5); Lymphocytes % 11.6 % (10-50); Mean Corpuscular HGB Conc 32.3 g/dL (31.8-35.4); Mean Corpuscular Hemoglobin 30.6 pg (27.0-31.2); Mean Corpuscular Volume 94.8 fl (80-94); Mean Platelet Volume 10.7 fl (7.4-10.4); Monocytes # 0.3 K/mm3 (0.1-1.0); Monocytes % 4.5 % (1.7-9.3); Neutrophils # 6.1 K/mm3 (1.8-7.8); Neutrophils % 81.3 % (37.0-80.0); Platelet Count 133 K/mm3 (142-424); Red Blood Count 2.68 M/mm3 (4.60-6.20); Red Cell Distribution Width 20.9 % (11.5-17.5); White Blood Count 7.6 K/mm3 (4.8-10.8)
[2024-03-16] MEDS: SODIUM CHLORIDE 0.9% 10ML FLUSH SYRINGE 10 ML IV (12:52)
== END 2024-03-16 12:55 | disposition home or self-care (01) ==
LOC: INF 12:14
PROVIDERS: PCP Nurse Practitioner; Visit Provider Internal Medicine Medical Oncology
DX: C25.9 Malignant neoplasm of pancreas, unspecified (principal)
CPT/HCPCS: 36591; 85025; J1642

== ENCOUNTER 2024-03-20 09:00 | Outpatient (RCR) | payer BC, SELFPAY ==
--- NOTE | 2024-03-16 14:03 | HMH.PTOPEV ---
PT Outpatient Evaluation Rehab PT Outpatient Evaluation Start: 03/16/24 10:55 Freq: Status: Active Protocol: Document 03/16/24 10:55 TISHA (Rec: 03/16/24 12:25 TISHA [id number]) E-signed By Anabel Rubin, PT Outpatient Therapy Subjective History Subjective History This is an initial evaluation for 58 y/o male, Aramis Milian ( Estrada ), who presents to PT with referral for weakness from pancreatic cancer. I'm just so weak . Pt reports he wasn't able to get his recent chemo treatment ( canceled by ) d/t extreme weakness. Pt reports he is limited by weakness, fatigue, atrophy, and lack of appetite. Pt uses a transport chair for community mobility and RW for short household distances. Pt was IND with all mobility prior to recent diagnosis. Pt recently received a chemo port . Does not report any known upcoming surgeries. Pt's goals: To strengthen self back up PMH: Metastatic pancreatic ( currently in chemo, diagnosed in ) Open heart surgery ( heart valve replacement 1998) New diagnosis of cancer in past 12 Yes: Pancreatic months? Chief Complaint Weakness Symptoms Aggravated By Physical Activity Prior Functional Limitations None Current Functional Limitations Lifting,Housework,Dressing, Driving,Standing,Sitting, Squatting,Recreation Activity, Walking,Stairs,Balance Symptom Description Activity Dependent Hip/Knee Eval Gait Observation General Gait Pattern Observation Narrow Based Gait Assistive Device Assistive Devices Rolling / Wheeled Walker MMT bilateral Hip Flexion Strength Grade 3+ Fair+ Hip Abduction Strength Grade 3+ Fair+ Hip Adduction Strength Grade 3+ Fair+ Hip Extension Strength Grade 3+ Fair+ Knee Extension Strength Grade 3+ Fair+ Knee Flexion Strength Grade 4- Good- Miscellaneous Dx PT Eval Objective Objective Outcome measures: - 5xSTS: No score, unable to stand 5 times without some assistance. - TU seconds with RW Mobility: - STS: Requires Mod A d/t BLE weakness. CGA-SUP once standing. - Ambulation: RW with CGA ~20- 25' Miscellaneous Goals Short Term Goals In 4 weeks, pt will: 1) Verbalize IND with HEP tasks. 2) Improve BLE MMT by 1/2 grade. 3) Perform 3 STS from chair without assistance. 4) Tolerate 8 minute Mod intensity endurance intervention. 5) Ambulate 40' using RW 6) Improve TUG by 3 seconds using RW. Larder Cook Goals In 8 weeks, pt will: 1) Achieve BLE MMT of at least 4/5 2) Maintain ability to ambulate HH distances (40-50') using RW without assistance. 3) Perform TUG in 26 seconds to improve mobility. 4) Verbalize adherence to HEP 5) Perform 5 STS transitions with CGA-Min A Outpatient Therapy Assessment Prognosis Rehab Potential Good Comment Pt's prognosis to achieve PT goals is good d/t pt's motivation and PLOF. Barriers to achieve goals may be pt's current medical diagnosis and future chemo treatment side effects. Pt presents with impaired generalized strength, gait, and functional mobility . Pt would benefit from skilled outpatient PT to address deficits and achieve pt goals. Clinical Impression Consistent with Diagnosis Yes Consistent with Weakness Outpatient Therapy Plan of Care Treatment Plan May Include Therapeutic Exercise Including Home Yes Exercise Program Manual Therapy Techniques Yes Neuromuscular Re-education Yes Therapeutic Activities to Return to Yes Previous Functional/Work Level Gait Training Yes ADL/Self Care Education Yes Eval/Re-Eval Yes Aquatic Therapy Yes Frequency Times per week 2-3 times weekly Duration Number of Weeks 6-8 weeks Addendums This patient is a candidate for social No or vocational rehab? Patient/Guardian verbally acknowledges Yes understanding of treatment program and consents to further treatment? Patient/Guardian verbally acknowledges Yes understanding of diagnosis, prognosis and goals for treatment? Eval Complexity PT Charges 99753 - Moderate Complexity Shoulder/Elbow Eval Shoulder Objective Measurements Elbow Objective Measurements PHYSICIAN CERTIFICATION: I certify the specified therapy services for Aramis Ramos are required, authorized, and reviewed every 30 days.
== END 2024-03-20 23:59 | disposition home or self-care (01) ==
LOC: PT 09:00
PROVIDERS: PCP Nurse Practitioner; Visit Provider Internal Medicine Adolescent Medicine
DX: R53.1 Weakness (principal); C25.9 Malignant neoplasm of pancreas, unspecified
CPT/HCPCS: 97110; 97163; 97530; 97535

== ENCOUNTER 2024-03-23 10:28 | Outpatient (RCR) | payer BC, SELFPAY ==
--- NOTE | 2024-03-23 11:56 | HMH.OTOPEV ---
OT Inpatient Evaluation Rehab OT Outpatient Eval Start: 03/23/24 11:43 Freq: Status: Active Protocol: Document 03/23/24 11:43 [facility] (Rec: 03/23/24 11:55 [facility] [id number]) E-signed By Nguyen Calloway, OT Outpatient Therapy Subjective History Subjective History Pt is a 58 year old male who reports to therapy for initial evaluation of bilateral UE weakness. Pt was diagnosed with pancreatic cancer in December 2023. He is currently receiving chemo therapy. Pt complains of significant weakness in both UE and LE's. Pt is also seeing physical therapy due to continued decline. Pt still lives at home alone at this time, but family checks on him multiple times a day. Pt is having difficulty with transferring short distances and is currently using a wheelchair. Pt does demonstrate with bilateral UE weakness at all joints. Pt's client director strength is also significantly limited bilaterally. Pt's right shoulder has declined AROM due to past injury and RTC tear. Pt will continue to be seen weekly in order to address bilateral UE strengthening to help improve independence with daily activities. STG R hand client director: 35 lbs LTG R hand client director: 45 lbs STG L hand client director: 50 lbs LTG L hand client director: 55 lbs New diagnosis of cancer in past 12 Yes: Pancreatic cancer December? 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 Strength Symptoms Relieved By Rest/Positioning Symptoms Aggravated By Physical Activity,Lifting Prior Functional Limitations None Current Functional Limitations Reaching,Lifting,Housework, Dressing,Driving,Sleeping, Standing Level of pain today (0-10) 0 Pain scale - at its best (0-10) 0 Pain scale - at its worst (0-10) 0 Shoulder/Elbow Eval Shoulder Objective Measurements Shoulder MMT Bilateral Shoulder Abduction Strength Grade 3+ Fair+ Shoulder Flexion Strength Grade 3+ Fair+ Shoulder External Rotation Strength 3+ Fair+ Grade Shoulder Internal Rotation Strength 3+ Fair+ Grade Shoulder Strength Patient Testing Sitting Position Elbow Objective Measurements Elbow MMT Bilateral Elbow Flexion Strength Grade 3+ Fair+ Elbow Extension Strength Grade 3+ Fair+ Supination Strength Grade 3+ Fair+ Pronation Strength Grade 3+ Fair+ Wrist/Hand Eval Wrist Manual Muscle Testing Right Wrist Extension Strength Grade 3+ Fair+ Wrist Flexion Strength Grade 3+ Fair+ Wrist Radial Deviation Strength Grade 3+ Fair+ Wrist Ulnar Deviation Strength Grade 3+ Fair+ Left Wrist Extension Strength Grade 3+ Fair+ Wrist Flexion Strength Grade 3+ Fair+ Wrist Radial Deviation Strength Grade 3+ Fair+ Wrist Ulnar Deviation Strength Grade 3+ Fair+ Machine Slat Basket Maker/Pinch Strength Right Machine Slat Basket Maker Strength Measurement (lbs) 25 Left Machine Slat Basket Maker Strength Measurement (lbs) 45 OT Outpatient Assessment Impairments Problems/Impairments Palpation Tenderness,Impaired Strength,Impaired Endurance, Impaired Lifting,Impaired Dressing,Impaired Shower/ Bathing,Impaired Household Care,Impaired Recreational Activities Prognosis Rehab Potential Good Clinical Impression Consistent with Diagnosis Yes Short Term Goals Number of Weeks 3 Increase Strength Yes: 4-/5 throughout bilateral shoulders, elbow, wrists Increase Endurance Yes: Pt will tolerate B/L UE exercises for ~15 minutes prior to rest. Patient to be Ind w/ HEP Yes: AAROM and AROM exercises; yellow theraputty Custodial Goals Number of Weeks 6 Increase Strength Yes: 4/5 throughout B/L shoulder, elbow, and wrist Increase Endurance Yes: Pt will tolerate B/L UE exercises for ~25 minutes prior to rest. Patient to be Ind w/ Advanced HEP Yes: Advanced strengthening exercises Outpatient Therapy Plan of Care Treatment Plan May Include Therapeutic Exercise Including Home Yes Exercise Program Manual Therapy Techniques Yes Neuromuscular Re-education Yes Therapeutic Activities to Return to Yes Previous Functional/Work Level ADL/Self Care Education Yes Thermal Modalities Yes Electrical Stimulation Yes Ultrasound/Phonophoresis Yes Iontophoresis Yes Parrafin Yes Orthotics/Bracing/Splinting Yes Massage Yes Eval/Re-Eval Yes Frequency Times per week 2 Duration Number of Weeks 6 Addendums This patient is a candidate for social No or vocational rehab? Patient/Guardian verbally acknowledges Yes understanding of treatment program and consents to further treatment? Patient/Guardian verbally acknowledges Yes understanding of diagnosis, prognosis and goals for treatment? Eval Complexity OT Charge 49986 - Moderate Complexity PHYSICIAN CERTIFICATION: I certify the specified therapy services for Aramis Ramos are required, authorized, and reviewed every 30 days.
== END 2024-03-23 23:59 | disposition home or self-care (01) ==
LOC: OT 10:28
PROVIDERS: PCP Nurse Practitioner; Visit Provider Internal Medicine Adolescent Medicine
DX: R53.1 Weakness (principal); C25.9 Malignant neoplasm of pancreas, unspecified
CPT/HCPCS: 97166; 97530

== ENCOUNTER 2024-03-26 11:45 | Outpatient (CLI) | payer BC, SELFPAY ==
[2024-03-26 12:14] LABS: Basophils # 0.1 K/mm3 (0-0.2); Basophils % 1.1 % (0.1-2.0); Eosinophils % 0.5 % (0.1-12.0); Hematocrit 26.9 % (42.0-52.0); Hemoglobin 8.6 g/dL (14.1-18.0); Lymphocytes % 14.9 % (10-50); Mean Corpuscular Hemoglobin 30.3 pg (27.0-31.2); Mean Corpuscular Volume 94.7 fl (80-94); Mean Platelet Volume 10.3 fl (7.4-10.4); Monocytes # 0.5 K/mm3 (0.1-1.0); Monocytes % 7.4 % (1.7-9.3); Neutrophils % 75.5 % (37.0-80.0); Platelet Count 210 K/mm3 (142-424); Red Blood Count 2.84 M/mm3 (4.60-6.20); Red Cell Distribution Width 19.3 % (11.5-17.5); White Blood Count 6.6 K/mm3 (4.8-10.8)
[2024-03-26 12:33] LABS: Alanine Aminotransferase 22 U/L (12-78); Albumin/Globulin Ratio 1.3 (1.1-1.8); Alkaline Phosphatase 206 U/L (38-126); Aspartate Amino Transferase 33 U/L (17-59); Bilirubin,Total 0.9 mg/dl (0.2-1.3); Blood Urea Nitrogen 27 mg/dl (9-20); Carbon Dioxide 21 mmol/L (22.0-30.0); Chloride 112 mmol/L (98-107); Estimated Glomerular Filt Rate 68 ml/min (>60); GFR (African American) 83 ML/MIN (>60); Globulin 2.3 g/dL (1.3-3.2); Glucose 96 mg/dl (74-100); Sodium 142 mmol/L (136-145); Total Protein,Serum 5.3 g/dl (6.3-8.2)
[2024-03-26 12:40] LABS: Anion Gap 12.2 mEq/L (5-15); Potassium 3.2 mmoL/L (3.5-5.1)
[2024-03-26] MEDS: PROCHLORPERAZINE 10MG/2ML VIAL 10 MG IV (12:40)
--- NOTE | 2024-03-26 12:40 | PC.NURSE ---
1240-PT C/O NAUSEA;HAD ORDER FOR PRN COMPAZINE 10MG IV
[2024-03-26] MEDS: DEXAMETHASONE 4MG TABLET 12 MG PO (12:50)
[2024-03-26] MEDS: PACLITAXEL PROTEIN BOUND 112 MG IV (13:34)
[2024-03-26] MEDS: SODIUM CHLORIDE 0.9% 50ML BAG 50 ML IV (13:34)
[2024-03-26 13:40] VITALS: BP 111/76; PULSE 93; RESP 18; O2SAT 96
[2024-03-26 14:10] VITALS: BP 108/64; PULSE 82; RESP 18; O2SAT 96
[2024-03-26] MEDS: GEMCITABINE HCL IV (14:13)
[2024-03-26] MEDS: SODIUM CHLORIDE 0.9% IV (14:13)
[2024-03-26 14:17] VITALS: BP 107/69; PULSE 85; RESP 18
[2024-03-26 14:54] VITALS: BP 105/67; PULSE 80; RESP 18; O2SAT 96
[2024-03-26] MEDS: SODIUM CHLORIDE 0.9% 10ML FLUSH SYRINGE 10 ML IV (15:00)
[2024-03-26 15:05] VITALS: BP 103/63; PULSE 82; RESP 18; O2SAT 95
[2024-03-27 08:14] LABS: CA 19-9 1511 U/mL (0-35)
== END 2024-03-26 15:05 | disposition home or self-care (01) ==
LOC: INF 11:46
PROVIDERS: PCP Nurse Practitioner; Visit Provider Internal Medicine Medical Oncology
DX: Z51.11 Encounter for antineoplastic chemotherapy (principal); C25.9 Malignant neoplasm of pancreas, unspecified; Z79.899 Other long term (current) drug therapy
CPT/HCPCS: 80053; 85025; 86301; 96413; 96417; J0780; J1642; J8540; J9201; J9264

== ENCOUNTER 2024-04-02 12:23 | Outpatient (CLI) | payer BC, SELFPAY ==
[2024-04-02 12:24] VITALS: BMI 26.4
[2024-04-02] MEDS: SODIUM CHLORIDE 0.9% 10ML FLUSH SYRINGE 10 ML IV (12:35)
[2024-04-02 12:45] LABS: Basophils % 0.8 % (0.1-2.0); Eosinophils % 0.5 % (0.1-12.0); Hematocrit 25.1 % (42.0-52.0); Hemoglobin 8.1 g/dL (14.1-18.0); Lymphocytes # 1.1 K/mm3 (0.7-4.5); Mean Corpuscular HGB Conc 32.3 g/dL (31.8-35.4); Mean Corpuscular Hemoglobin 29.9 pg (27.0-31.2); Mean Corpuscular Volume 92.6 fl (80-94); Mean Platelet Volume 10.7 fl (7.4-10.4); Monocytes # 0.1 K/mm3 (0.1-1.0); Monocytes % 2.3 % (1.7-9.3); Neutrophils # 2.6 K/mm3 (1.8-7.8); Neutrophils % 66.9 % (37.0-80.0); Platelet Count 72 K/mm3 (142-424); Red Blood Count 2.71 M/mm3 (4.60-6.20); Red Cell Distribution Width 18.4 % (11.5-17.5); White Blood Count 3.9 K/mm3 (4.8-10.8)
[2024-04-02 13:11] LABS: Albumin Level 2.7 g/dl (3.5-5.0); Chloride 110 mmol/L (98-107); Sodium 141 mmol/L (136-145)
[2024-04-02 13:14] LABS: Alanine Aminotransferase 25 U/L (12-78); Albumin/Globulin Ratio 1.1 (1.1-1.8); Alkaline Phosphatase 179 U/L (38-126); Aspartate Amino Transferase 38 U/L (17-59); Bilirubin,Total 0.8 mg/dl (0.2-1.3); Blood Urea Nitrogen 20 mg/dl (9-20); Calcium 7.1 mg/dl (8.4-10.2); Carbon Dioxide 20 mmol/L (22.0-30.0); Creatinine Clearance Estimated 115 mL/min (50-200); Estimated Glomerular Filt Rate 86 ml/min (>60); GFR (African American) 104 ML/MIN (>60); Globulin 2.4 g/dL (1.3-3.2); Glucose 86 mg/dl (74-100); Total Protein,Serum 5.1 g/dl (6.3-8.2)
== END 2024-04-02 14:00 | disposition home or self-care (01) ==
LOC: INF 12:24
PROVIDERS: PCP Nurse Practitioner; Visit Provider Internal Medicine Medical Oncology
DX: C25.9 Malignant neoplasm of pancreas, unspecified (principal)
CPT/HCPCS: 36591; 80053; 85025; J1642

== ENCOUNTER 2024-04-09 13:05 | Outpatient (CLI) | payer BC, SELFPAY ==
[2024-04-09 13:55] VITALS: BMI 24.3
[2024-04-09 14:01] LABS: Basophils % 0.3 % (0.1-2.0); Eosinophils % 0.5 % (0.1-12.0); Hematocrit 26.8 % (42.0-52.0); Hemoglobin 8.4 g/dL (14.1-18.0); Lymphocytes # 0.6 K/mm3 (0.7-4.5); Lymphocytes % 14.8 % (10-50); Mean Corpuscular HGB Conc 31.3 g/dL (31.8-35.4); Mean Corpuscular Hemoglobin 29.5 pg (27.0-31.2); Mean Platelet Volume 11.2 fl (7.4-10.4); Monocytes # 0.3 K/mm3 (0.1-1.0); Monocytes % 9.2 % (1.7-9.3); Neutrophils # 2.7 K/mm3 (1.8-7.8); Platelet Count 137 K/mm3 (142-424); Red Blood Count 2.85 M/mm3 (4.60-6.20); Red Cell Distribution Width 20.1 % (11.5-17.5); White Blood Count 3.7 K/mm3 (4.8-10.8)
[2024-04-09 14:03] LABS: Albumin Level 2.8 g/dl (3.5-5.0); Chloride 111 mmol/L (98-107); Sodium 137 mmol/L (136-145)
[2024-04-09 14:06] LABS: Alanine Aminotransferase 43 U/L (12-78); Albumin/Globulin Ratio 1.2 (1.1-1.8); Alkaline Phosphatase 156 U/L (38-126); Aspartate Amino Transferase 52 U/L (17-59); Bilirubin,Total 1.2 mg/dl (0.2-1.3); Blood Urea Nitrogen 29 mg/dl (9-20); Calcium 7.8 mg/dl (8.4-10.2); Carbon Dioxide 20 mmol/L (22.0-30.0); Creatinine Clearance Estimated 87 mL/min (50-200); Estimated Glomerular Filt Rate 68 ml/min (>60); GFR (African American) 83 ML/MIN (>60); Globulin 2.4 g/dL (1.3-3.2); Glucose 85 mg/dl (74-100); Total Protein,Serum 5.2 g/dl (6.3-8.2)
[2024-04-09] MEDS: DEXAMETHASONE 4MG TABLET 12 MG PO (14:20)
[2024-04-09] MEDS: SODIUM CHLORIDE 0.9% 50ML BAG 50 ML IV (15:02)
[2024-04-09] MEDS: GEMCITABINE HCL IV (15:10)
[2024-04-09] MEDS: SODIUM CHLORIDE 0.9% IV (15:10)
[2024-04-09 15:15] VITALS: BP 107/82; PULSE 76; RESP 17; O2SAT 100
[2024-04-09 15:30] VITALS: BP 111/82; PULSE 87; RESP 16
[2024-04-09 15:45] VITALS: BP 120/75; PULSE 80; RESP 16
[2024-04-09] MEDS: PACLITAXEL PROTEIN BOUND 86 MG IV (15:51)
[2024-04-09 16:00] VITALS: BP 127/84; PULSE 76; RESP 17
[2024-04-09 16:15] VITALS: BP 121/84; PULSE 72; RESP 16
[2024-04-09 16:30] VITALS: BP 114/88; PULSE 72; RESP 16
== END 2024-04-09 16:50 | disposition home or self-care (01) ==
LOC: INF 13:06
PROVIDERS: PCP Nurse Practitioner; Visit Provider Internal Medicine Medical Oncology
DX: C25.9 Malignant neoplasm of pancreas, unspecified (principal)
CPT/HCPCS: 80053; 85025; 96413; 96417; J1642; J8540; J9201; J9264

== ENCOUNTER 2024-04-17 14:31 | Outpatient (CLI) | payer BC, SELFPAY ==
[2024-04-17 14:36] VITALS: BMI 24.3
[2024-04-17] MEDS: SODIUM CHLORIDE 0.9% 10ML FLUSH SYRINGE 10 ML IV (14:48)
[2024-04-17 14:49] LABS: Basophils % 0.6 % (0.1-2.0); Eosinophils % 0.6 % (0.1-12.0); Hematocrit 25.7 % (42.0-52.0); Hemoglobin 8.2 g/dL (14.1-18.0); Lymphocytes # 1.3 K/mm3 (0.7-4.5); Lymphocytes % 19.8 % (10-50); Mean Corpuscular HGB Conc 31.9 g/dL (31.8-35.4); Mean Corpuscular Hemoglobin 29.6 pg (27.0-31.2); Mean Corpuscular Volume 92.8 fl (80-94); Mean Platelet Volume 10.6 fl (7.4-10.4); Monocytes # 0.3 K/mm3 (0.1-1.0); Monocytes % 3.9 % (1.7-9.3); Neutrophils # 4.8 K/mm3 (1.8-7.8); Neutrophils % 73.9 % (37.0-80.0); Platelet Count 78 K/mm3 (142-424); Red Blood Count 2.77 M/mm3 (4.60-6.20); Red Cell Distribution Width 19.5 % (11.5-17.5); White Blood Count 6.5 K/mm3 (4.8-10.8)
== END 2024-04-17 14:42 | disposition home or self-care (01) ==
LOC: INF 14:32
PROVIDERS: PCP Nurse Practitioner; Visit Provider Internal Medicine Medical Oncology
DX: C25.9 Malignant neoplasm of pancreas, unspecified (principal)
CPT/HCPCS: 36591; 85025; J1642

== ENCOUNTER 2024-04-21 11:00 | Outpatient (RCR) | payer BC, SELFPAY ==
--- NOTE | 2024-04-17 16:19 | HMH.RHREAS ---
Rehab Reassessment Rehab OP Re-assessment Start: 04/06/24 11:21 Freq: Status: Active Protocol: Document 04/17/24 14:55 TISHA (Rec: 04/17/24 16:14 TISHA [id number]) E-signed By Anabel Rubin, PT Rehab Re-assessment Subjective Subjective Pt reports he is feeling weak. Pt hasn't been able to ambulate but does still transfer with one person assist. Pt reports he had chemo last week. Objective Objective Notes Outcome measures: - 5xSTS: No score, unable to stand 5 times without Max A - TUG: Unable Mobility: - STS: Requires Max A d/t BLE weakness. Mod A once standing. - Ambulation: Unable - Car transfer: Max A x 2 BLE strength: - 2+/5 hip flexion - 3/5 knee extension - 3/5 knee flexion Assessment Progress Assessment No Progress Assessment Notes This is a reassessment for Aramis Ramos who presents to PT with a referral for weakness d/t pancreatic cancer . Pt has been seen for 2 visits since initial evaluation. Progress limited by medical condition and limited sessions so far. Pt's strength and mobility have worsened since IE d/t medical condition and cancer treatment side effects. All goals revised d/t pt's current functional mobility. Pt would benefit from skilled PT to address deficits. Patient goals met None. Change all STG and LTGs: In 4 weeks, pt will: 1) Verbalize IND with HEP tasks. 2) Improve hip flexion to 3/5 MMT 3) Tolerate standing 2 minutes statically with Min A and UE support 4) Tolerate a 3 minute Mod intensity endurance intervention. 5) Ambulate 10' using RW In 8 weeks, pt will: 1) Maintain ability to demo 3/ 5 BLE MMTs 2) Ambulate 20' with RW and Mod A 3) Verbalize adherence to HEP 4) Perform 3 consecutive STS transitions in one session with Mod-Max A. Revised Goals Al goals revised d/t current functional status and progress . Plan Plan Continue POC Frequency of Therapy 2-3 times Duration of therapy 8 weeks Time and Billing Re-Eval Time 10 Re-Eval Billing Units 1 Charge for PT reassessment? Yes PHYSICIAN CERTIFICATION: I certify the specified therapy services for Aramis Ramos are required, authorized, and reviewed every 30 days.
== END 2024-04-21 23:59 | disposition home or self-care (01) ==
LOC: PT 11:00
PROVIDERS: PCP Nurse Practitioner; Visit Provider Internal Medicine Adolescent Medicine
DX: R53.1 Weakness (principal); C25.9 Malignant neoplasm of pancreas, unspecified
CPT/HCPCS: 97110; 97164; 97530

== ENCOUNTER 2024-04-21 12:22 | Outpatient (CLI) | payer BC, SELFPAY ==
--- NOTE | 2024-04-21 12:28 | XR_ITS ---
FINAL REPORT CLINICAL HISTORY: Right foot swelling and pain COMPARISON: None FINDINGS: RIGHT FOOT 3 views of the right foot were obtained. There is no acute fracture or dislocation. 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 Subchondral sclerosis and degenerative cyst formation is noted. Soft tissues are unremarkable. IMPRESSION: Degenerative changes without acute bony abnormality. Reviewed, Interpreted and Dictated by Brad Neal MD Transcribed by Cleo Frausto Authenticated and [facility]
--- NOTE | 2024-04-21 12:28 | XR_ITS ---
FINAL REPORT CLINICAL HISTORY: SWELLING AND PAIN COMPARISON: None FINDINGS: RIGHT ANKLE 3 views of the right ankle were obtained. There is no acute fracture or dislocation. The mortise is intact. Visualized joint spaces are normally aligned. A small plantar spur is present. There is moderate soft tissue swelling about the ankle. IMPRESSION: Moderate soft tissue swelling without acute bony abnormality. Reviewed, Interpreted and Dictated by Brad Neal MD Transcribed by Cleo Frausto Authenticated and [facility]
--- NOTE | 2024-04-21 12:54 | CA_ITS ---
FINAL REPORT TECHNIQUE: Multiple transverse and longitudinal images were performed of the right femoral-popliteal deep venous system with augmentation and compression maneuvers. CLINICAL HISTORY: SWELLING RLE,PT HAS PANCREATIC CANCER ON CHEMO COMPARISON: None FINDINGS: Right lower extremity duplex ultrasound demonstrates visible thrombus from the common femoral vein through the peroneal and posterior tibial veins. IMPRESSION: Right lower extremity DVT as above. Reviewed, Interpreted and Dictated by Brad Neal MD Transcribed by Cleo Frausto Authenticated and [facility]
== END 2024-04-21 23:59 | disposition home or self-care (01) ==
PROVIDERS: PCP Nurse Practitioner; Visit Provider Internal Medicine Medical Oncology
DX: R22.41 Localized swelling, mass and lump, right lower limb (principal)
CPT/HCPCS: 73610; 73630; 93971

== ENCOUNTER 2024-04-24 11:00 | Outpatient (RCR) | payer BC, SELFPAY | END 2024-04-24 23:59 | disposition home or self-care (01) | LOC: OT 11:00 | PROVIDERS: PCP Nurse Practitioner; Visit Provider Internal Medicine Adolescent Medicine | DX: R53.1 Weakness (principal); C25.9 Malignant neoplasm of pancreas, unspecified | CPT/HCPCS: 97110; 97530 ==